=== PATIENT | female | born 1935 | race Caucasian/White ===

== ENCOUNTER 2017-06-23 18:35 | Inpatient (IN) | payer MEDICARE, OTHER ==
[~2017-06-23] VITALS: Ht 162.6 cm; Wt 53.3 kg
[~2017-06-23 18:35] MED LIST: ACET325T51 PO; ASCO-294 PO; CHOL100045 PO; DONE10TA42 PO; ENOX40DI8 SUBQ; FERR325T20 PO; HYDR-3939 PO; HYDR-4003 PO; LAMO150T2 PO; LEVO50TA6 PO; LOSA50TA3 PO; METO100T3 PO; MULT-666 PO; NAM10 PO; NEPHVIT PO; POLY17PO6 PO; SIMV20TA4 PO; VENL75TA87 PO; VIT1CAPS42 PO
[2017-06-23 18:49] VITALS: BP 114/91; PULSE 63; RESP 15
[2017-06-23] MEDS ORDERED: Alum-Mag Hydrox-Simeth 30 mL Suspension PO PRN ×2 (18:55→20:35)
[2017-06-23] MEDS ORDERED: Ondansetron 2 mg/mL 2 mL Inj IVPUSH PRN ×2 (18:55→20:35)
--- NOTE | 2017-06-23 19:00 | DRSVH ---
PROCEDURE: CT BRAIN WITHOUT CONTRAST ([id number]) INDICATIONS: dec LOC TECHNIQUE: Noncontrast 4.5 mm thick angled axial sections acquired from the foramen magnum to the vertex, with c oronal reformats. COMPARISON: [facility], CT, CT BRAIN WO CON, 09/10/2015, 16:31. [facility], CT, BRAIN W/O CONTRAST, 02/24/2008, 11:54. FINDINGS: Image quality: Excellent. CSF spaces: Basal cisterns are patent. No extra-axial fluid collections. There is ex vacuo dilatati on of the lateral ventricles. There is a heavily calcified 1.7 cm mass at superior aspect of the left paramedian cerebellum. Brain: No midline shift. No intracranial masses or hemorrhage. Krishnamurthy-white matter interface is norm al. There is generalized cerebral and cerebellar atrophy with low density in the subcortical and per iventricular white matter. Skull and face: Calvarium and visualized facial bones are intact, without suspicious lesions. Sinuses: Visualized sinuses and mastoids are clear. IMPRESSION: 1. No CT evidence of acute intracranial pathology. 2. Left paracentral posterior fossa meningioma. 3. Generalized cerebral and cerebellar atrophy greater than expected for the patient's age. Dictated by: Hector Turner M.D. on 06/23/2017 at 18:55 Approved by: Hector Turner M.D. on 06/23/2017 at 18:59
--- NOTE | 2017-06-23 19:04 | ED.REPORT ---
HPI-General Illness Date of Service Jun 23, 2017 ED Provider: Constantino Arteaga MD Pt is an 81 year old female with a hx of HTN, unspecified seizure history, hypothyroidism, and dementia presenting to the ED via EMS due to decreased level of consciousness. The pt usually takes a nap around that time, but when her caretakers at [facility] went into the room they found her to be unresponsive at 1630 tonight. Pt was still unresponsive when medics arrived with a GCS of 3. "BP was initially 60 over palpable but improved to 97 systolic after a bag of fluids". The patient's mental status is noted to be rapidly improving to GCS of 10-12 by EMS after receiving IV fluids. The patient is not known to have fallen or struck her head. She is reportedly not on any blood thinners. She was not noted to have any seizure-like activity and has "not had a seizure in many years". She does not take any antiseizure medications. POLST form specifies DNR DNI, the goal of treatment is comfort. Limited interventions. Nursing Notes Stated Complaint: DECREASED LOC Chief Complaint: Neuro Symptoms/ Deficits Nursing Notes Reviewed: Yes Allergies: Coded Allergies: gemfibrozil (Verified Allergy, Unknown, per md orders, 10/21/15) Scheduled Aspirin (Aspirin) 325 Mg Tablet 325 MG PO DAILY Cholecalciferol (Vitamin D3) (Vitamin D) 1,000 Unit Capsule 1,000 UNIT PO DAILY Cyanocobalamin (Vitamin B-12) (Vitamin B-12) 100 Mcg Tablet 100 MCG PO DAILY Dextromethorphan HBr/Quinidine (Nuedexta 20-10 mg Capsule) 1 Each Capsule 1 EACH PO BID Divalproex DR (Depakote DR) 125 Mg Tablet 125 MG PO BID Swallowed whole without chewing to avoid local irritation of the mouth and throat. Hydralazine (Hydralazine) 50 Mg Tablet 50 MG PO BID Hydrocodone-Acetaminophen 5-325 mg (Hydrocodone-Acetaminophen 5-325 mg) 1 Each Tablet 1 TABLET PO TID Lactulose (Lactulose) 20 Gm/30 Ml Solution 20 GM PO DAILY may hold for loose stools Lamotrigine (Lamotrigine) 150 Mg Tablet 150 MG PO BID Levothyroxine (Levothyroxine) 50 Mcg Tablet 50 MCG PO DAILY Losartan Potassium (Losartan Potassium) 100 Mg Tablet 100 MG PO QAM Metoprolol Tartrate (Metoprolol Tartrate) 100 Mg Tablet 100 MG PO BID Mirtazapine (Remeron) 15 Mg Tablet 15 MG PO HS Multivitamin (Once Daily) 1 Each Tablet 1 EACH PO DAILY Prazosin (Prazosin) 1 Mg Capsule 2 MG PO HS Sennosides (Senna) 8.6 Mg Tablet 17.2 MG PO BID Venlafaxine ER (Venlafaxine ER) 150 Mg Tab.er.24 150 MG PO QAM Scheduled PRN Acetaminophen (Acetaminophen) 325 Mg Tablet 325-650 MG PO Q4H PRN PRN For Pain Polyethylene Glycol 3350 (Miralax) 17 Gm Powd.pack 17 GM PO DAILY PRN PRN For Constipation General Time Seen by MD: 18:37 Chief Complaint Altered mental status Hx Obtained From: EMS Arrived By: [facility] Sudden in Onset?: Yes Onset Occurred: 1 - 4 hours ago Symptom Duration: Since onset Recent Healthcare: No recent doctor visit, No recent hospitalization Similar Sx Previous: No Past Medical History Past Medical History Notes: PCP: PATRICIA Ocasio Past Medical History Alzheimer's Disease Spinal Stenosis h/o rectal bleed 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 macular degeneration ataxia hypothyroid mitrial regurgitation Reports: Hyperlipidemia, Hypertension Reports: Dementia, Seizure disorder Past Surgical History Reports: Hysterectomy Smoking History Never Smoker Social History Other Social History: Good social support, , Local resident Ambulatory Status Independent Review of Systems Unable to Obtain ROS Mental status Physical Exam Vital Signs Vital Signs Date Time Temp Pulse Resp B/P Pulse Ox O2 Delivery O2 Flow Rate FiO2 06/23/17 18:49 35.4 63 15 114/91 Nasal Cannula 1 Initial VS: Reviewed ENT: Conjunctiva normal, No scleral icterus Respiratory: Breath sounds normal, Clear to auscultation, No respiratory distress Cardiovascular: Regular rate & rhythm, Heart sounds normal, Intact distal pulses Abdomen / GI: Soft, Non-tender, No guarding, No rebound, No distention Extremities: Vascular intact, Neuro intact, No swelling, No tenderness Skin: Warm, Dry, No cyanosis Psychiatric: Mood/affect normal, Behavior normal, Normal thought content General/Constitutional: Awake Pt seems to be grimacing. Occasionally speaks in 2-3 word sentences fluently. Very dry membranes. Does not answer questions. Head / Eyes: Atraumatic, Normocephalic, PERRL, EOMI Pupils 2mm Neurologic: No motor deficits, No sensory deficits, CN II - XII intact No lateralizing neurological findings. Not able to participate in neurological exam. No posturing or facial droop, seems to be moving all 4 extremities equally. Interpretation & Diagnostics Lab Results Interpretation Result Diagram: 06/23/17192206/23/171922 Test 06/23/17 19:23 06/23/17 19:25 White Blood Count 7.3th/mm3 (3.8-10.1) Red Blood Count 3.52mil/mm3 (3.90-5.20) Hemoglobin 10.6g/dL (12.0-15.6) Hematocrit 33.6% (35.0-46.0) Mean Corpuscular Volume 95.5fL (81-100) Mean Corpuscular Hemoglobin 30.1pg (27.0-35.0) Mean Corpuscular Hemoglobin Concent 31.5% (32.0-37.0) Red Cell Distribution Width 14.2% (12.3-15.4) Platelet Count 205bil/L (150-400) Neutrophils (%) (Auto) 76.1% (40-74) Lymphocytes (%) (Auto) 15.2% (14-46) Monocytes (%) (Auto) 6.4% (4-12) Eosinophils (%) (Auto) 1.8% (0-5) Basophils (%) (Auto) 0.4% (0-3) Prothrombin Time 11.3sec (8.1-12.5) Prothromb Time International Ratio 1.05ratio Sodium Level 146mEq/L (134-144) Potassium Level 4.4mEq/L (3.5-5.2) Chloride Level 105mEq/L (97-108) Carbon Dioxide Level 27mmol/L (18-29) Blood Urea Nitrogen 32mg/dL (8-27) Creatinine 1.05mg/dL (0.57-1.00) Estimat Glomerular Filtration Rate 72mL/min (>59) Glucose Level 142mg/dL (60-99) Calcium Level 8.9mg/dL (8.5-10.1) Magnesium Level 2.1mg/dL (1.6-2.6) Total Bilirubin 0.2mg/dL (0.0-1.2) Aspartate Amino Transf (AST/SGOT) 14U/L (0-50) Alanine Aminotransferase (ALT/SGPT) 7U/L (0-32) Alkaline Phosphatase 54U/L (25-165) Troponin T < 0.010ug/L (0.0-0.011) Total Protein 6.7g/dL (6.4-8.4) Albumin 3.7g/dL (3.4-5.0) Procalcitonin 0.07ng/mL (0.00-0.08) Thyroid Stimulating Hormone (TSH) 4.230uIU/mL (0.450-4.500) Hold Williamson Top Tube Received (Received) Urine Color Yellow (YELLOW) Urine Appearance Cloudy (CLEAR,HAZY) Urine pH 7.0 (5.0-8.0) Urine Specific [place] 1.015 (1.003-1.035) Urine Protein 30mg/dL (NEG,TRACE) Urine Glucose (UA) Negativemg/dL (NEGATIVE) Urine Ketones 15mg/dL (NEGATIVE) Urine Occult Blood Negative (NEGATIVE) Urine Nitrite Positive (NEGATIVE) Urine Bilirubin Negative (NEGATIVE) Urine Urobilinogen Normalmg/dL (NORMAL) Urine Leukocyte Esterase Small (NEGATIVE) Urine RBC 0-2/hpf (0-2) Urine WBC 0-5/hpf (0-5) Urine Epithelial Cells Few/hpf (NONE-MOD) Urine Crystals Amorphous urates (NONE Urine Bacteria Many/hpf (NONE-FEW) Urine Hyaline Casts None/lpf (NONE) Urine Granular Casts None seen (NONE SEEN) Urine Waxy Casts None seen (NONE SEEN) Urine Red Blood Cell Casts None seen (NONE SEEN) Urine White Blood Cell Casts None seen (NONE SEEN) Urine Mucus None seen (None Seen) Urine Trichomonas None seen (NONE SEEN) Urine Yeast None (NONE SEEN) Urinalysis Comment None Urine Culture Reflexed Indicated ECG Interpretation ECG Interpretation: Normal axis intervals. Prolonged QT interval. No ST segment elevation. When compared to prior dated 10/21/2015 pt is now bradycardic with increased QT interval. Time: 18:54 Interpreted by: ED physician Normal ECG Interpretation: Normal rate (56), Normal sinus rhythm X-Ray Chest Interpretation Chest Xray Interpretation: IMPRESSION: No radiographic evidence of acute cardiopulmonary pathology. Dictated by: Hector Turner M.D. on 06/23/2017 at 19:23 View: Portable, 1 view Interpretation / Wet Read by: Interpret - Radiologist CT Head Interpretation IMPRESSION: 1. No CT evidence of acute intracranial pathology. 2. Left paracentral posterior fossa meningioma. 3. Generalized cerebral and cerebellar atrophy greater than expected for the patient's age. Dictated by: Hector Turner M.D. on 06/23/2017 at 18:55 Study: Head CT no contrast Interpretation / Wet Read by: Interpret - Radiologist Re-Eval/Medical Decision Med Decision/Clinical Course The patient is an 81-year-old female with a history of dementia, unspecified "seizure disorder" presents from [facility]term [facility] after being found to be unresponsive and unarousable in her bed. EMS noted her to be profoundly hypotensive with an initial GCS of 3 and rapid improvement in her blood pressure and level of consciousness with IV fluids. Upon arrival in the emergency department the patient is slightly hypotensive though otherwise hemodynamically stable and afebrile. She is initially grimacing and holding her eyes shut and unable to provide any history. There are no signs of trauma or any lateralizing neurologic deficits on examination. She appears profoundly dehydrated. IV access was obtained and administered a 2 L saline bolus. CXR: Obtained, reviewed and interpreted by myself shows no evidence of infiltrates, effusions or pneumothorax. Cardiac and mediastinal silhouette normal. No bony or soft tissue abnormalities. Head CT was obtained as below: 1. No CT evidence of acute intracranial pathology. 2. Left paracentral posterior fossa meningioma. 3. Generalized cerebral and cerebellar atrophy greater than expected for the patient's age. EKG shows Normal axis intervals. Prolonged QT interval. No ST segment elevation. When compared to prior dated 10/21/2015 pt is now bradycardic with increased QT interval. Laboratory studies were obtained as below: CBC unremarkable. BUN 31.2, creatinine 1.05. CMP otherwise unremarkable except for hypernatremia with a sodium of 146. UA shows positive nitrites nitrites and small leukesterase. Many bacteria ( catheter specimen). Patient has evidence of urinary tract infection on catheterized urine specimen was therefore treated with IV ceftriaxone. She appears profoundly dehydrated and was aggressively fluid resuscitated. She was initially quite confused though had dramatic improvement in her mental status. After fluid resuscitation she was noted to be spontaneously opening her eyes and answering questions. Family arrived at the bedside and stated that she had returned to her normal baseline which is that of a interactive/conversation with demented female. The cause of her profound and transient alteration of mental status remains unclear. She is not demonstrating any lateralizing neurologic deficits and given her rapid improvement in neurologic function was not a candidate for TPA. Head CT demonstrated no intracranial hemorrhage or significant mass effect. Much of her presentation is consistent with possible seizure event and subsequent improving postictal state. While she does have a urinary tract infection and I do not think that this explains her symptoms. She is hyponatremic and quite dehydrated though again I do not think that this completely explains her presentation today. I had a long conversation with the patient's family regarding goals of care and they would like her admitted for observation and ongoing fluid resuscitation/treatment of her UTI. Per our conversation they do not desire aggressive further workup of the event that occurred today. Patient was discussed with admitting hospitalist accepted for further management. She was transferred in stable condition. Time of Eval: 18:58 Patient Status: Condition improved Re-Evaluation/Progress Note: Pt back from CT. Performed physical exam. Time of Eval: 20:02 Patient Status: Condition improved Re-Evaluation/Progress Note: Spoke to the pt's and son. Pt is much more awake and alert. Opening eyes. Her states that she is currently even more alert than at her usual baseline. Family reports that she does have a hx of seizures, although she hasn't had one for a long time. Her states that her seizures in the past were associated with a sudden lowering of her blood pressure. Discussed plan for admission. Family understands and agrees. Consultation : Referral / Consult Name: Svitlana Smith DO Consulted With: Hospitalist Call Returned at: 20:21 Energy Consultant: Will see patient, Agrees with plan, Accepts admit Counseled Regarding: Diagnosis, Lab results, Need for admission Discharge & Departure Primary Impression: Altered mental status Altered mental status type: unspecified Qualified Code: R41.82 - Altered mental status, unspecified Additional Impressions: Hypotension Hypotension type: unspecified hypotension type Qualified Code: I95.9 - Hypotension, unspecified UTI (urinary tract infection) Urinary tract infection type: site unspecified Hematuria presence: without hematuria Qualified Code: N39.0 - Urinary tract infection, site not specified Severe dehydration History of seizures Hypernatremia Disposition: ADMITTED TO HOSPITAL Discharge Condition All VS Reviewed: Yes Condition: Improved Referrals: Alma Ocasio PA-C (PCP) Crit Care Except Billable Proc Time Spent: 105-134 minutes Services Performed: Patient management by me, Time spent at bedside, Reviewing test results, Reviewing imaging, Discussing patient care, Documentation in record, Time with fam/surrogate Scribe Attestation Portions of this note were transcribed by Arianna Higuera. I, Dr. Arteaga personally performed the history, physical exam and medical decision-making; I reviewed and confirmed the accuracy of the information in the transcribed note. Signed by: Randa Varma, 06/23/2017. copies to: Alma Ocasio PA-C, Beck O MD Jun 23, 2017 19:04 ARIANNA HIGUERA Jun 23, 2017 19:07
[2017-06-23] MEDS ORDERED: ASPI325T32 PO (19:09)
[2017-06-23] MEDS ORDERED: LACT10SO60 PO (19:09)
[2017-06-23] MEDS ORDERED: HYDR-3940 PO (19:09)
[2017-06-23] MEDS ORDERED: HYDR-4003 PO (19:09)
[2017-06-23] MEDS ORDERED: DIVA125T2 PO (19:09)
[2017-06-23] MEDS ORDERED: DEXT1CAP3 PO (19:12)
[2017-06-23] MEDS ORDERED: CYAN100T PO (19:12)
[2017-06-23] MEDS ORDERED: LOSA100T29 PO (19:12)
[2017-06-23] MEDS ORDERED: SENN-133 PO (19:16)
[2017-06-23] MEDS ORDERED: MIRT15TA PO (19:16)
[2017-06-23] MEDS ORDERED: VENL150T3 PO (19:16)
[2017-06-23] MEDS ORDERED: PRAZ1CAP2 PO (19:16)
--- NOTE | 2017-06-23 19:26 | DRSVH ---
PROCEDURE: X-RAY CHEST ONE VIEW, PORTABLE ([id number]) INDICATIONS: chest pain TECHNIQUE: One view of the chest was acquired. COMPARISON: [facility], CR, XR CHEST 1VW (PORTABLE), 10/21/2015, 4:57. Merged with [facility], CR, XR CHEST 1VW (PORTABLE), 09/05/2015, 17:10. [facility], CR, CHEST 1VW (PORTAB LE), 02/25/2008, 6:53. FINDINGS: Surgical changes and devices: None. Lungs and pleura: No pleural effusions or pneumothorax. Lungs are clear. Mediastinum: Mediastinal contours appear normal. Heart size is normal. Bones and chest wall: No suspicious bony lesions. Overlying soft tissues appear unremarkable. IMPRESSION: No radiographic evidence of acute cardiopulmonary pathology. Dictated by: Hector Turner M.D. on 06/23/2017 at 19:23 Approved by: Hector Turner M.D. on 06/23/2017 at 19:25
[2017-06-23 19:27] LABS: BASOPHILS % (AUTO) 0.4 % (0-3); EOSINOPHILS % (AUTO) 1.8 % (0-5); MONOCYTES % (AUTO) 6.4 % (4-12); Mean Corpuscular Hemoglobin 30.1 pg (27.0-35.0); Mean Corpuscular Volume 95.5 fL (81-100); NEUTROPHILS % (AUTO) 76.1 % (40-74); Platelet Count 205 bil/L (150-400)
[2017-06-23 19:39] LABS: APPEARANCE,URINE CLOUDY (CLEAR,HAZY); COLOR,URINE YELLOW (YELLOW); OCCULT BLOOD,URINE NEGATIVE (NEGATIVE); UROBILINOGEN,URINE NORMAL (NORMAL)
[2017-06-23 19:42] LABS: INR 1.05 ratio
[2017-06-23 19:52] LABS: Magnesium 2.1 mg/dL (1.6-2.6)
[2017-06-23] MEDS ORDERED: 0.9% Sodium Chloride 1,000 ML IV SCH ×3 (20:00→21:35)
[2017-06-23 20:01] LABS: TROPONIN T < 0.010 ug/L (0.0-0.011)
[2017-06-23] MEDS ORDERED: cefTRIAXone Inj 1,000 MG in Dextrose 5% Minibag Plus 50 ML IV ONE (20:20)
[2017-06-23] MEDS ORDERED: Polyethylene Glycol (PEG) 17 Gm Powder PO PRN (20:35)
[2017-06-23 21:18] VITALS: BP 156/55; PULSE 73; RESP 20; O2SAT 97
[2017-06-23 21:19] VITALS: BP 118/54; RESP 18; O2SAT 97
[2017-06-23 21:21] VITALS: PULSE 69
--- NOTE | 2017-06-23 21:55 | PCM.HPMED ---
Subjective Date of Service Jun 23, 2017 Primary Provider: Admitting Physician: Svitlana Smith DO Primary Care Physician: Alma Ocasio PA-C Attending Physician: Svitlana Smith DO Chief Complaint: Decreased level of consciousness History of Present Illness: 81-year-old female with a history of seizures, hypothyroid, hypertension, and Alzheimer's dementia who presented to the ED today by EMS due to decreased levels of consciousness with GCS of 3 from [facility]. History is taken entirely from the emergency department note is the patient is unable to relate any history due to dementia. According to what was reported, the patient was found unresponsive at 1630 this afternoon. At that time her GCS was 3 and blood pressure on EMS arrival was 40/palpation. She was immediately given 1L of normal saline and blood pressure responded to SBP of 97. The patient is unable to relate any additional review of systems except as stated that she is very cold. In the emergency department the patient was given 2 more liters of normal saline and her GCS improved to 12. She was also given ceftriaxone after a urinalysis was suspicious for UTI, although there is no white count, tachycardia , or tachypnea. The patient's temperature was below 36C. Patient also appeared to have mild hypernatremia and mild FREDI. CT of the head was negative for acute bleed and CXR was unremarkable Patient is comfort care except for antibiotics. Review of Systems: Complete review of symptoms performed; pertinent positives and negatives per HPI Allergies Coded Allergies: gemfibrozil (Verified Allergy, Unknown, per md orders, 10/21/15) Home Medications Aspirin (Aspirin) 325 Mg Tablet 325 MG PO DAILY Cholecalciferol (Vitamin D3) (Vitamin D) 1,000 Unit Capsule 1,000 UNIT PO DAILY Cyanocobalamin (Vitamin B-12) (Vitamin B-12) 100 Mcg Tablet 100 MCG PO DAILY Dextromethorphan HBr/Quinidine (Nuedexta 20-10 mg Capsule) 1 Each Capsule 1 EACH PO BID Divalproex DR (Depakote ) 125 Mg Tablet 125 MG PO BID Swallowed whole without chewing to avoid local irritation of the mouth and throat. Hydralazine (Hydralazine) 50 Mg Tablet 50 MG PO BID Hydrocodone-Acetaminophen 5-325 mg (Hydrocodone-Acetaminophen 5-325 mg) 1 Each Tablet 1 TABLET PO TID Lactulose (Lactulose) 20 Gm/30 Ml Solution 20 GM PO DAILY may hold for loose stools Lamotrigine (Lamotrigine) 150 Mg Tablet 150 MG PO BID Levothyroxine (Levothyroxine) 50 Mcg Tablet 50 MCG PO DAILY Losartan Potassium (Losartan Potassium) 100 Mg Tablet 100 MG PO QAM Metoprolol Tartrate (Metoprolol Tartrate) 100 Mg Tablet 100 MG PO BID Mirtazapine (Remeron) 15 Mg Tablet 15 MG PO HS Multivitamin (Once Daily) 1 Each Tablet 1 EACH PO DAILY Prazosin (Prazosin) 1 Mg Capsule 2 MG PO HS Sennosides (Senna) 8.6 Mg Tablet 17.2 MG PO BID Venlafaxine ER (Venlafaxine ER) 150 Mg Tab.er.24 150 MG PO QAM Acetaminophen (Acetaminophen) 325 Mg Tablet 325-650 MG PO Q4H PRN PRN For Pain Polyethylene Glycol 3350 (Miralax) 17 Gm Powd.pack 17 GM PO DAILY PRN PRN For Constipation PMH Alzheimer's Disease Spinal Stenosis h/o rectal bleed 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 macular degeneration ataxia hypothyroid mitrial regurgitation Reports: Hyperlipidemia, Hypertension Reports: Dementia, Seizure disorder Surgical History Hysterectomy Family History Unable to obtain due to dementia Social History Hx Alcohol Use: Yes Hx Substance Use: No Hx Tobacco Use: No Smoking Status: Never Smoker Living Arrangement: Assisted Living Exam Vital Signs Vital Sign - Last Date Time Temp Pulse Resp B/P Pulse Ox O2 Delivery O2 Flow Rate FiO2 06/23/17 18:49 35.4 63 15 114/91 Nasal Cannula 1 Exam Patient is only oriented to self, unable to identify where she is or date/time Cardio: Appeared to be regular but patient did not tolerate having the catheter was removed Respiratory: left lung holliday clear; patient refused right field exam Abdomen: Deferred due to patient Extremities: No edema noted Psych: Patient severely demented Neuro: No focal deficits noted, but again extremely limited exam due to patient Lab and Diagnostics Result Diagram: 06/23/171922 X-Rays, CTs and MRIs CT Brain IMPRESSION: 1. No CT evidence of acute intracranial pathology. 2. Left paracentral posterior fossa meningioma. 3. Generalized cerebral and cerebellar atrophy greater than expected for the patient's age Dictated by: Hector Turner M.D. on 06/23/2017 at 18:55 Chest X-ray IMPRESSION: No radiographic evidence of acute cardiopulmonary pathology. Dictated by: Hector Turner M.D. on 06/23/2017 at 19:23 Assessment & Plan 81 year old female with hx of seizure disorder and Alzheimers presented to the ED due to EMS from [facility] after she was found unresponsive with reported BP 40/palp. Acute mental status change with severe hypotension; present on admission; resolving -Possibly second post-ictal vs UTI and hypotension second to dehydration -Unknown reason for the unresponsiveness and no reported last normal -Patient responded to fluids administered by EMS -CT brain negative; TSH normal -As patient is improving and reported comfort only measures, will not perform additional imaging -Received total of 3L NS between EMT and ED -Maintenance of 80ml/hr NS overnight. Stop time ordered for tomorrow at 10am UTI; present on admission; ongoing -UA positive for nitrites, LE, and bacteria; no reported symptoms, probable colonization -Normal white count but temperature low -Will start on ceftriaxone for the current time awaiting cult Seizure disorder; present on admission; ongoing -Underlying seizure disorder on Depakote and Lamotrigine -Questionable if AMS was caused by unwitnessed seizure -Continue home meds and defer additional imaging due to comfort measures Acute kidney injury with mild Hypernatremia; present on admission; ongoing -Likely prerenal -Fluids as above -Recheck in am Hyperglycemia; present on admission; ongoing -Likely due to stress reaction due to either seizure or just severity of hypotension -We will follow but no insulin at this time Hypertension; present on admission; stable -Hold home medications due to hypotension -Home meds include: losartan, hydralazine, and metoprolol Alzheimers with depression-continue home meds once reconciled Hypothyroidism-levothyroxine Chronic pain- will continue hydrocodone prn; only if requested Disposition: Patient is being admitted to medical floor under observation status. PT IS COMFORT MEASURES ONLY WITH ANTIBIOTICS. Pain Evaluation: Adequate Pain Control GI Prophylaxis: H2 sandeep VTE Prophylaxis: Sub-Q Heparin (Unfractionated) VTE Mechanical Devices: Intermittant Pneumatic CD Resuscitation Status: DNR/DNI:Do Not Resuscitate/Intubate Attending Statement The patient was seen and examined together with house staff on 06/23/2017 and I agree with the history, exam and plan as outlined in the note above. Shadi Brown DO Jun 23, 2017 19:45 Svitlana Smith DO Jun 24, 2017 05:57
[2017-06-23] MEDS: Famotidine Inj 20 MG in IV Premix 1 EACH IV SCH (22:07)
[2017-06-23] MEDS: Heparin 5,000 Unit/mL Inj SUBQ SCH (23:47)
[2017-06-24 00:38] VITALS: BP 130/72; PULSE 74; RESP 18; O2SAT 97
[2017-06-24 04:43] VITALS: BP 167/72; PULSE 76; RESP 20; O2SAT 94
[2017-06-24 05:48] LABS: BASOPHILS % (AUTO) 0.6 % (0-3); EOSINOPHILS % (AUTO) 1.7 % (0-5); Mean Corpuscular Volume 95.3 fL (81-100); Platelet Count 184 bil/L (150-400)
[2017-06-24 06:13] LABS: Magnesium 1.8 mg/dL (1.6-2.6)
[2017-06-24] MEDS: Famotidine Inj 20 MG in IV Premix 1 EACH IV SCH (07:26)
[2017-06-24] MEDS: Heparin 5,000 Unit/mL Inj SUBQ SCH ×3 (07:27→23:58)
[2017-06-24] MEDS ORDERED: 0.9% Sodium Chloride 1,000 ML IV SCH (07:30)
[2017-06-24 08:00] VITALS: PULSE 74
[2017-06-24] MEDS: cefTRIAXone Inj 1,000 MG in Dextrose 5% Minibag Plus 50 ML IV SCH ×2 (08:01→21:03)
[2017-06-24 08:58] VITALS: BP 160/74; PULSE 75; RESP 18; O2SAT 97
[2017-06-24] MEDS ORDERED: Polyethylene Glycol (PEG) 17 Gm Powder PO PRN (10:55)
[2017-06-24] MEDS: Venlafaxine XR 75 mg ER24 Capsule PO SCH (11:36)
[2017-06-24] MEDS: lamoTRIgine 100 mg Tablet PO SCH (11:36)
--- NOTE | 2017-06-24 11:45 | PCM.PNMED ---
Subjective Date of Service Jun 24, 2017 Subjective Patient alert but confused which is reportedly her baseline. Blood pressure high. IV fluids continued. Exam Vital Signs Vital Sign - Last Date Time Temp Pulse Resp B/P Pulse Ox O2 Delivery O2 Flow Rate FiO2 06/24/17 08:58 36.8 75 18 160/74 97 Room Air 06/23/17 21:19 2 Intake and Output 06/23/17 06/23/17 06/24/17 Cumulative From/Thru 15:00 23:00 07:00 06/23/17 20:55 - 06/24/17 05:52 Intake Total 2050 ml 457 ml 2507 ml Balance 2050 ml 457 ml 2507 ml Intake Oral 0 ml 0 ml IV Total 2050 ml 457 ml 2507 ml # Voids 1 1 # Bowel Movements 1 1 Exam Patient is only oriented to self, unable to identify where she is or date/time Cardio: Appeared to be regular but patient did not tolerate having the catheter was removed Respiratory: left lung holliday clear; patient refused right field exam Abdomen: Deferred due to patient Extremities: No edema noted Psych: Patient severely demented Neuro: No focal deficits noted, but again extremely limited exam due to patient IVs and Medications Medications Reviewed: Medications were reviewed in detail Lab and Diagnostics Result Diagram: 06/24/17 0509 06/24/17 0509 X-Rays, CTs and MRIs CT Brain IMPRESSION: 1. No CT evidence of acute intracranial pathology. 2. Left paracentral posterior fossa meningioma. 3. Generalized cerebral and cerebellar atrophy greater than expected for the patient's age Dictated by: Hector Turner M.D. on 06/23/2017 at 18:55 Chest X-ray IMPRESSION: No radiographic evidence of acute cardiopulmonary pathology. Dictated by: Hector Turner M.D. on 06/23/2017 at 19:23 Assessment & Plan 81 year old female with hx of seizure disorder and Alzheimers presented to the ED due to EMS from [facility] after she was found unresponsive with reported BP 40/palp. # Acute mental status change with hypotension; present on admission; resolving -Possibly due to UTI and hypotension second to dehydration. Unwitnessed seizure and post-ictal phase possible but unlikely -Unknown reason for the unresponsiveness and no reported last normal -Patient responded to fluids administered by EMS -CT brain negative; TSH normal -As patient is improving and reported comfort only measures, will not perform additional imaging -Received total of 3L NS between EMT and ED -Maintenance of 80ml/hr NS overnight. Discontinued today # UTI; present on admission; ongoing -UA positive for nitrites, LE, and bacteria; no reported symptoms, urine culture growing GNRs -Normal white count but temperature low -Continue ceftriaxone # Seizure disorder; present on admission; ongoing -Underlying seizure disorder on Depakote and Lamotrigine -Questionable if AMS was caused by unwitnessed seizure -Continue home meds and defer additional imaging due to comfort measures # Acute kidney injury with mild Hypernatremia; present on admission; ongoing -Likely prerenal -Fluids as above -Recheck in am # Hyperglycemia; present on admission; ongoing -Likely due to stress reaction due to either seizure or just severity of hypotension -We will follow but no insulin at this time # Hypertension; present on admission; stable -Hold home medications due to hypotension -Home meds include: losartan, hydralazine, and metoprolol # Alzheimers with depression-continue home meds once reconciled # Hypothyroidism-levothyroxine # Chronic pain- will continue hydrocodone prn; only if requested Disposition: Inpatient status. PT IS COMFORT MEASURES ONLY WITH ANTIBIOTICS. Possible discharge tomorrow once urine sensitivity is available GI Prophylaxis: H2 sandeep VTE Prophylaxis: Sub-Q Heparin (Unfractionated) VTE Mechanical Devices: Intermittant Pneumatic CD Resuscitation Status: DNR/DNI:Do Not Resuscitate/Intubate Fabio Doss MD Jun 24, 2017 11:45
[2017-06-24 12:52] VITALS: BP 148/72; PULSE 68; RESP 18; O2SAT 97
[2017-06-24 19:33] VITALS: BP 158/67; PULSE 67; RESP 18; O2SAT 96
[2017-06-24] MEDS: Divalproex Sprinkles 125 mg ER12 Capsule PO SCH (21:04)
[2017-06-25 04:10] VITALS: BP 144/72; PULSE 63; RESP 18; O2SAT 97
[2017-06-25] MEDS: lamoTRIgine 100 mg Tablet PO SCH (07:37)
[2017-06-25] MEDS: Heparin 5,000 Unit/mL Inj SUBQ SCH (07:37)
[2017-06-25] MEDS: Famotidine Inj 20 MG in IV Premix 1 EACH IV SCH (07:37)
[2017-06-25] MEDS: Venlafaxine XR 75 mg ER24 Capsule PO SCH (07:38)
[2017-06-25] MEDS: Divalproex Sprinkles 125 mg ER12 Capsule PO SCH (07:38)
[2017-06-25] MEDS ORDERED: Lactulose 20 Gm/30 mL 30 mL Syrup PO SCH (08:30)
[2017-06-25] MEDS: cefTRIAXone Inj 1,000 MG in Dextrose 5% Minibag Plus 50 ML IV SCH (08:44)
--- NOTE | 2017-06-25 10:37 | PCM.DIMED ---
Discharge Instructions Date of Service Jun 25, 2017 Dates of Hospitalization Jun 23, 2017 at 19:27 Discharge Diagnosis Discharge Diagnosis # Acute mental status change with hypotension; present on admission; resolving -AMS Possibly due to UTI and hypotension second to dehydration due to poor oral intake. # UTI; present on admission; ongoing # Seizure disorder; present on admission; ongoing # Acute kidney injury with mild Hypernatremia; present on admission; ongoing # Hyperglycemia; present on admission; ongoing # Hypertension; present on admission; stable # Alzheimers with depression- # Hypothyroidism # Chronic pain- Diet Discharge Diet: Low fat, Low Sodium Activity Discharge Activity: Limited until seen by PCP Call your provider Call your provider for: Fever or Chills, Shortness of breath, Bleeding, Chest pain, Vomitting, Excessive diarrhea, Weakness (unilateral) Patient Instructions Patient Instructions You were hospitalized due to altered mental status and hypotension. Seems to be due to UTI and poor oral intake.You have been treated with IV antibiotics and IV fluids. Please continue Keflex for 3 more days. Follow-up Provider: Alma Ocasio PA-C Follow-up with PCP in: 2 weeks Fabio Doss MD Jun 25, 2017 10:37
[2017-06-25] MEDS ORDERED: CEPH-512 PO (10:38)
[2017-06-25 12:21] VITALS: BP 158/70; PULSE 64; RESP 18; O2SAT 99
--- NOTE | 2017-06-25 14:47 | PCM.DC.MED ---
Discharge Summary Date of Service Jun 25, 2017 Dates of Hospitalization Date of Hospital Admission Jun 23, 2017 at 19:27 Date of Discharge: Jun 25, 2017 Providers: Admitting Physician: Svitlana Smith DO Primary Care Physician: Alma Ocasio PA-C Attending Physician: Fabio Noriega MD Diagnosis at Time of Discharge Diagnosis at Time of Discharge # Acute mental status change with hypotension; present on admission; resolving -AMS Possibly due to UTI and hypotension second to dehydration due to poor oral intake. # UTI; present on admission; ongoing # Seizure disorder; present on admission; ongoing # Acute kidney injury with mild Hypernatremia; present on admission; ongoing # Hyperglycemia; present on admission; ongoing # Hypertension; present on admission; stable # Alzheimers with depression- # Hypothyroidism # Chronic pain- Procedures XRay, CTs & MRIs CT Brain IMPRESSION: 1. No CT evidence of acute intracranial pathology. 2. Left paracentral posterior fossa meningioma. 3. Generalized cerebral and cerebellar atrophy greater than expected for the patient's age Dictated by: Hector Turner M.D. on 06/23/2017 at 18:55 Chest X-ray IMPRESSION: No radiographic evidence of acute cardiopulmonary pathology. Dictated by: Hector Turner M.D. on 06/23/2017 at 19:23 Brief History 81-year-old female with a history of seizures, hypothyroid, hypertension, and Alzheimer's dementia who presented to the ED today by EMS due to decreased levels of consciousness with GCS of 3 from [facility]. History is taken entirely from the emergency department note is the patient is unable to relate any history due to dementia. According to what was reported, the patient was found unresponsive at 1630 this afternoon. At that time her GCS was 3 and blood pressure on EMS arrival was 40/palpation. She was immediately given 1L of normal saline and blood pressure responded to SBP of 97. The patient is unable to relate any additional review of systems except as stated that she is very cold. In the emergency department the patient was given 2 more liters of normal saline and her GCS improved to 12. She was also given ceftriaxone after a urinalysis was suspicious for UTI, although there is no white count, tachycardia , or tachypnea. The patient's temperature was below 36C. Patient also appeared to have mild hypernatremia and mild FREDI. CT of the head was negative for acute bleed and CXR was unremarkable Patient is comfort care except for antibiotics. Hospital Course 81 year old female with hx of seizure disorder and Alzheimers presented to the ED due to EMS from [facility] after she was found unresponsive with reported BP 40/palp. # Acute mental status change with hypotension; present on admission; resolving -AMS due to UTI and hypotension second to dehydration due to poor oral intake. No evidence of sepsis clinically. Unwitnessed seizure and post-ictal phase possible but unlikely -Patient responded to fluids administered by EMS -CT brain negative; TSH normal -As patient is improving and reported comfort only measures, did not perform additional imaging -Received total of 3L NS between EMT and ED -Treated with Maintenance of 80ml/hr NS # UTI; present on admission; ongoing -UA positive for nitrites, LE, and bacteria; no reported symptoms, urine culture growing Escherichia coli pansensitive -Normal white count but temperature low. -Treated with ceftriaxone . Discharged on Keflex for 3 more days. # Seizure disorder; present on admission; ongoing -Underlying seizure disorder on Depakote and Lamotrigine -AMS can as well be caused by unwitnessed seizure but unlikely -Continue home meds and defer additional imaging due to comfort measures # Acute kidney injury with mild Hypernatremia; present on admission; improved -Likely prerenal -Fluids as above -Initial creatinine 1.05. On discharge 0.8. # Hypertension; present on admission; stable -Resumed home medications once BP stable -Home meds include: losartan, hydralazine, and metoprolol # Alzheimers with depression-continue home meds once reconciled # Hypothyroidism-levothyroxine # Chronic pain- will continue hydrocodone prn; only if requested Disposition: PT IS COMFORT MEASURES ONLY WITH ANTIBIOTICS. Discharge back to [facility] Exam Vital Signs (Last) Date Time Temp Pulse Resp B/P Pulse Ox O2 Delivery O2 Flow Rate FiO2 06/25/17 12:21 36.4 64 18 158/70 99 Room Air 06/23/17 21:19 2 Exam Patient is only oriented to self, unable to identify where she is or date/time Cardio: Appeared to be regular but patient did not tolerate having the catheter was removed Respiratory: left lung holliday clear; patient refused right field exam Abdomen: Deferred due to patient Extremities: No edema noted Psych: Patient severely demented Neuro: No focal deficits noted, but again extremely limited exam due to patient Test 06/23/17 19:23 06/23/17 19:25 06/24/17 05:09 06/24/17 22:27 Prothrombin Time 11.3sec (8.1-12.5) Prothromb Time International Ratio 1.05ratio Troponin T < 0.010ug/L (0.0-0.011) Procalcitonin 0.07ng/mL (0.00-0.08) Thyroid Stimulating Hormone (TSH) 4.230uIU/mL (0.450-4.500) Hold Williamson Top Tube Received (Received) Urine Color Yellow (YELLOW) Urine Appearance Cloudy (CLEAR,HAZY) Urine pH 7.0 (5.0-8.0) Urine Specific [place] 1.015 (1.003-1.035) Urine Protein 30mg/dL (NEG,TRACE) Urine Glucose (UA) Negativemg/dL (NEGATIVE) Urine Ketones 15mg/dL (NEGATIVE) Urine Occult Blood Negative (NEGATIVE) Urine Nitrite Positive (NEGATIVE) Urine Bilirubin Negative (NEGATIVE) Urine Urobilinogen Normalmg/dL (NORMAL) Urine Leukocyte Esterase Small (NEGATIVE) Urine RBC 0-2/hpf (0-2) Urine WBC 0-5/hpf (0-5) Urine Epithelial Cells Few/hpf (NONE-MOD) Urine Crystals Amorphous urates (NONE Urine Bacteria Many/hpf (NONE-FEW) Urine Hyaline Casts None/lpf (NONE) Urine Granular Casts None seen (NONE SEEN) Urine Waxy Casts None seen (NONE SEEN) Urine Red Blood Cell Casts None seen (NONE SEEN) Urine White Blood Cell Casts None seen (NONE SEEN) Urine Mucus None seen (None Seen) Urine Trichomonas None seen (NONE SEEN) Urine Yeast None (NONE SEEN) Urinalysis Comment None Urine Culture Reflexed Indicated White Blood Count 5.3th/mm3 (3.8-10.1) Red Blood Count 3.17mil/mm3 (3.90-5.20) Hemoglobin 9.5g/dL (12.0-15.6) Hematocrit 30.2% (35.0-46.0) Mean Corpuscular Volume 95.3fL (81-100) Mean Corpuscular Hemoglobin 30.0pg (27.0-35.0) Mean Corpuscular Hemoglobin Concent 31.5% (32.0-37.0) Red Cell Distribution Width 13.9% (12.3-15.4) Platelet Count 184bil/L (150-400) Neutrophils (%) (Auto) 59.0% (40-74) Lymphocytes (%) (Auto) 29.5% (14-46) Monocytes (%) (Auto) 9.0% (4-12) Eosinophils (%) (Auto) 1.7% (0-5) Basophils (%) (Auto) 0.6% (0-3) Sodium Level 147mEq/L (134-144) Potassium Level 3.6mEq/L (3.5-5.2) Chloride Level 110mEq/L (97-108) Carbon Dioxide Level 22mmol/L (18-29) Blood Urea Nitrogen 27mg/dL (8-27) Creatinine 0.80mg/dL (0.57-1.00) Estimat Glomerular Filtration Rate 98mL/min (>59) Glucose Level 74mg/dL (60-99) Calcium Level 8.4mg/dL (8.5-10.1) Magnesium Level 1.8mg/dL (1.6-2.6) Total Bilirubin 0.2mg/dL (0.0-1.2) Aspartate Amino Transf (AST/SGOT) 12U/L (0-50) Alanine Aminotransferase (ALT/SGPT) 6U/L (0-32) Alkaline Phosphatase 47U/L (25-165) Total Protein 5.7g/dL (6.4-8.4) Albumin 3.4g/dL (3.4-5.0) Prealbumin 17mg/dL (20-40) Microbiology Results JOSELITO CULT URINE Final 06/25/17-34 Organism 1 ESCHERICHIA COLI U COLONY COUNT/QUANTITY >100,000 CFU/ml Cefazolin-predicts results for the oral agents, cefaclor,cefdinir, cefpodoximen, cefprozil, cefuroximne axetil, cephalexin and loracarbed when used for therapy of uncomplicated UTI's due to E. coli, K. pneumoniae, and Proteus mirabilis. Cefpodoxime, cefdinir and cefuroxime axetil may be tested individually because some isolates may be susceptible to these agents while testing resistant to cefazolin. (CLSI E752-H22 pg 53) 1. ESCHERICHIA COLI M.I.C Interp --------- ------ * AMOXICILLIN/CLAVULATE 16 I * AMPICILLIN >=32 R * CEFAZOLIN (CEPHALOSPORIN) UTI 4 S * CEFEPIME <=1 S * CEFTRIAXONE <=1 S * CEFUROXIME SODIUM 4 S * CIPROFLOXACIN >=4 R * ERTAPENEM <=0.5 S * GENTAMICIN <=1 S * IMIPENEM <=1 S * LEVOFLOXACIN >=8 R * NITROFURANTOIN <=16 S * TETRACYCLINE <=1 S * TOBRAMYCIN <=1 S * TRIMETHOPRIM/SULFAMETHOXAZOLE <=20 S Discharge Medications Discharge Medications Aspirin (Aspirin) 325 Mg Tablet 325 MG PO DAILY (Reported) Cephalexin (Keflex) 500 Mg Capsule 500 MG PO TID Prescribed by: FABIO NORIEGA MD Cholecalciferol (Vitamin D3) (Vitamin D) 1,000 Unit Capsule 1,000 UNIT PO DAILY (Reported) Cyanocobalamin (Vitamin B-12) (Vitamin B-12) 100 Mcg Tablet 100 MCG PO DAILY ( Reported) Dextromethorphan HBr/Quinidine (Nuedexta 20-10 mg Capsule) 1 Each Capsule 1 EACH PO BID (Reported) Divalproex DR (Depakote DR) 125 Mg Tablet 125 MG PO BID (Reported) Swallowed whole without chewing to avoid local irritation of the mouth and throat. Hydralazine (Hydralazine) 50 Mg Tablet 50 MG PO BID (Reported) Hydrocodone-Acetaminophen 5-325 mg (Hydrocodone-Acetaminophen 5-325 mg) 1 Each Tablet 1 TABLET PO TID (Reported) Lactulose (Lactulose) 20 Gm/30 Ml Solution 20 GM PO DAILY (Reported) may hold for loose stools Lamotrigine (Lamotrigine) 150 Mg Tablet 150 MG PO BID (Reported) Levothyroxine (Levothyroxine) 50 Mcg Tablet 50 MCG PO DAILY (Reported) Losartan Potassium (Losartan Potassium) 100 Mg Tablet 100 MG PO QAM (Reported) Metoprolol Tartrate (Metoprolol Tartrate) 100 Mg Tablet 100 MG PO BID (Reported ) Mirtazapine (Remeron) 15 Mg Tablet 15 MG PO HS (Reported) Multivitamin (Once Daily) 1 Each Tablet 1 EACH PO DAILY (Reported) Prazosin (Prazosin) 1 Mg Capsule 2 MG PO HS (Reported) Sennosides (Senna) 8.6 Mg Tablet 17.2 MG PO BID (Reported) Venlafaxine ER (Venlafaxine ER) 150 Mg Tab.er.24 150 MG PO QAM (Reported) As needed Acetaminophen (Acetaminophen) 325 Mg Tablet 325-650 MG PO Q4H PRN PRN For Pain ( Reported) Polyethylene Glycol 3350 (Miralax) 17 Gm Powd.pack 17 GM PO DAILY PRN PRN For Constipation Prescribed by: MARTINE VALDES MD Followup Plan Disposition: SNF Discharge Diet: Low fat, Low Sodium Discharge Activity: Limited until seen by PCP Patient Instructions You were hospitalized due to altered mental status and hypotension. Seems to be due to UTI and poor oral intake.You have been treated with IV antibiotics and IV fluids. Please continue Keflex for 3 more days. Follow-up Provider: Alma Ocasio PA-C Follow-up with PCP in: 2 weeks Time spent 35 minutes coordinating discharge copies to: Alma Ocasio PA-C, Melaku MD Jun 25, 2017 14:47
== END 2017-06-25 14:45 | DRG 683 ==
LOC: SED 18:35 → EDBD 18:35 → OBSVTOIN 19:27 → MPC 19:27 → INTOOBSV 19:27 → MPC 21:05
PROVIDERS: ADMIT Internal Medicine; ATTEND Internal Medicine
DX: N17.9 Acute kidney failure, unspecified (principal); N39.0 Urinary tract infection, site not specified; E87.0 Hyperosmolality and hypernatremia; E86.0 Dehydration; Z79.82 Long term (current) use of aspirin; Z66 Do not resuscitate; I95.9 Hypotension, unspecified; G40.909 Epilepsy, unspecified, not intractable, without status epilepticus; G30.9 Alzheimer's disease, unspecified; F02.80 Dementia in other diseases classified elsewhere, unspecified severity, without behavioral disturbance, psychotic disturbance, mood disturbance, and anxiety; E03.9 Hypothyroidism, unspecified; R41.82 Altered mental status, unspecified; F32.9 Major depressive disorder, single episode, unspecified; B96.20 Unspecified Escherichia coli [E. coli] as the cause of diseases classified elsewhere